=== PATIENT | male | born 1985 | race African-American/Black ===

== ENCOUNTER 2018-05-13 09:31 | Day surgery (SDC) | payer OTHER ==
[2018-05-10 09:19] VITALS: BMI 23.7
[2018-05-13] MEDS ORDERED: SEVOFLURANE 250 ML BTL ONE (10:22)
[2018-05-13] MEDS ORDERED: DEXAMETHASONE SOD PHOSPHATE 4 MG/1 ML VIAL ONE (10:36)
[2018-05-13] MEDS ORDERED: PROPOFOL 20 ML ONE ×2 (10:36)
[2018-05-13] MEDS ORDERED: MIDAZOLAM HCL 2 MG/2 ML SINGLE DOSE VIAL ONE (10:37)
[2018-05-13] MEDS ORDERED: oxyCODONE HCL 5 MG TABLET PO PRN (11:55)
[2018-05-13] MEDS ORDERED: PROMETHAZINE HCL 25 MG/1 ML VIAL IVPB PRN (11:55)
[2018-05-13] MEDS ORDERED: ONDANSETRON 4 MG/2 ML VIAL IVPUSH PRN (11:55)
[2018-05-13] MEDS ORDERED: BUPIVACAINE HCL/PF 0.5% (5MG/ML) 10 ML VIAL ONE (11:59)
[2018-05-13] MEDS ORDERED: LACTATED RINGERS SOLUTION 1,000 ML IV SCH (12:00)
[2018-05-13] MEDS ORDERED: BUPIVACAINE HCL/PF (5 MG/ML) 30 ML VIAL IJ ONE (12:38)
--- NOTE | 2018-05-13 13:15 | OP ---
Operative Note - Note: Operative Date: 05/13/18 Pre-Operative Diagnosis: penile deformity and phimosis Operation: circumcision and penoplasty/excision of condyloma Findings: condyloma excised Post-Operative Diagnosis: Other (same with condyloma) Surgeon: Blake Mcwilliams Anesthesia: General Specimens Removed: condyloma/glans/preputial skin Estimated Blood Loss (mls): 5
[2018-05-13 14:55] VITALS: BP 128/60; PULSE 67; TEMP 97.2
--- NOTE | 2018-05-14 09:45 | OP ---
DATE OF OPERATION: 05/13/2018 PREOPERATIVE DIAGNOSIS: Penile deformity and phimosis. 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 ATTENDING: Gideon Payton MD ANESTHESIA: General. OPERATION WENT FOLLOWS: The patient was brought in the operating room, placed in supine position on the operating room table. Patient was given preoperative antibiotics and general anesthesia. With this accomplished, the patient was prepped and draped in the usual sterile manner. 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 In addition, the patient on inspection had a condyloma along the penile shaft. The condyloma was excised and sewn with intraoperative 5-0 chromic stitches. This was done in a 2-layer closure. The condyloma was sent for evaluation by Pathology. At this point, a guillotine technique was utilized to excise the preputial skin. Adequate skin was left in place so as not to allow for the scrotal skin to rise into the shaft of the penis with erections. With this accomplished, a relaxed incision was made in the glans penis, and a specimen was sent for evaluation. The incision was closed vertically in order to allow for correction of the ventral curvature. This was moderately successful. The 2-layer closure was then used for the preputial skin circumferentially. Excellent hemostasis was obtained, and the 2-layer closure was performed with 4-0 chromic interrupted stitches. No complications were noted. The patient was given Marcaine 0.5% at the end of the procedure for analgesia. GIDEON PAYTON M.D. [id number]
--- NOTE | 2018-05-16 14:38 | OP ---
DATE OF OPERATION: 05/13/2018 PREOPERATIVE DIAGNOSES: Penile deformity and phimosis. POSTOPERATIVE DIAGNOSES: Penile deformity and phimosis. PROCEDURE: Circumcision and penoplasty and excision of penile condyloma. ATTENDING: Gideon Payton MD ANESTHESIA: General. DESCRIPTION OF OPERATION: The patient was brought in the operating room, placed in supine position on the operating room table. The patient was noted to have a ventral curvature of the penis due to frenular scarring. The patient was also noted to have had been examined prior to the procedure and was instructed that there is a dorsal curvature at the level of the glans secondary to frenular scarring. The patient was instructed that a penoplasty would be performed in order to straighten out the curvature at the glans penis. The patient was also noted to have a condyloma. The patient agreed to excision of the small condyloma while the procedure was being done. The patient was given general anesthesia and preoperative antibiotics. A guillotine technique was used to remove the excess preputial skin. Once this was accomplished, the condyloma was excised and sent as a separate specimen. A relaxing incision was made in the glans penis in order to straighten out the ventral curvature. GIDEON PAYTON M.D. [id number]
--- NOTE | 2018-05-22 13:22 | PATH ---
Surgical Pathology Report Patient Name: MAURIZIO SANCHEZ [facility]. Rec. #: [id number] /Age/Gender: 1985 (Age: 33) / M Account: [id number] Location: [facility] Taken: 05/13/2018 Received: 05/13/2018 Reported: 05/22/2018 Physicians: Blake Mcwilliams Specimen(s) Received A: CONDYLOMA B: FORESKIN C: GLANS Clinical History Condyloma/phimosis Final Diagnosis A. CONDYLOMA, EXCISION: GENITAL SQUAMOUS MUCOSA WITH CONDYLOMA ACUMINATUM. IN SITU HYBRIDIZATION FOR LOW RISK HPV (6) IS FOCALLY POSITIVE. B. PENIS, FORESKIN, CIRCUMCISION: FORESKIN. C. GLANS, EXCISION: GENITAL SKIN WITHOUT SIGNIFICANT PATHOLOGIC FINDINGS. Comment: Deeper levels have been examined. HPV (08/13) performed and interpreted at [facility] ([id number]). Electronically Signed Kemi Mercado M.D. Gross Description A. Received in formalin labeled "condyloma," is a 0.4 x 0.1 x 0.1 cm brown skin shave. The specimen is submitted in toto in one cassette. B. Received in formalin labeled "foreskin of penis," is a 5.3 x 2.7 x 0.3 cm brown portion of wrinkled skin, consistent with foreskin. Agency Owner sections are submitted in one cassette. C. Received in formalin labeled "glans," is a 0.6 x 0.1 x 0.1 cm vicente-brown portion of skin. The specimen is submitted in toto in one cassette. 05/13/[address] [facility]2018
== END 2018-05-13 15:30 | disposition home or self-care (01) ==
LOC: JASU-SURG 09:31
PROVIDERS: ATTEND Urology
PROC: 0VNS0ZZ Release Penis, Open Approach (ICD-10-PCS; 2018-05-13)
PROC: 0VBS0ZZ Excision of Penis, Open Approach (ICD-10-PCS; principal; 2018-05-13 11:00)
PROC: 0VTTXZZ Resection of Prepuce, External Approach (ICD-10-PCS; 2018-05-13 11:00)
DX: N47.1 Phimosis (principal); Q55.61 Curvature of penis (lateral); N48.89 Other specified disorders of penis
CPT/HCPCS: 88304-TC; 88305-TC; 94760